=== PATIENT | male | born 1995 | race Caucasian/White ===

== ENCOUNTER 2017-12-06 14:36 | Emergency (ER) | payer SELFPAY ==
[~2017-12-06] VITALS: Ht 182.9 cm; Wt 81.7 kg
== END 2017-12-06 14:54 | disposition home or self-care (01) ==
LOC: ED 14:36
DX: R09.89 Other specified symptoms and signs involving the circulatory and respiratory systems (principal); R09.81 Nasal congestion

== ENCOUNTER 2017-12-20 21:20 | Emergency (ER) | payer OTHER ==
[~2017-12-20] VITALS: Ht 185.4 cm; Wt 81.9 kg
== END 2017-12-20 23:21 | disposition home or self-care (01) ==
LOC: ED 21:20
DX: Z00.8 Encounter for other general examination (principal); F31.9 Bipolar disorder, unspecified; F41.9 Anxiety disorder, unspecified; F17.200 Nicotine dependence, unspecified, uncomplicated
CPT/HCPCS: 80053; 80176; 81001; 84443; 85025; 99284; G0480